=== PATIENT | female | born 1935 | race Asian ===

== ENCOUNTER 2023-12-24 16:33 | Emergency (ER) | payer MEDICARE ==
[~2023-12-24] VITALS: Ht 157.5 cm; Wt 55.0 kg
[~2023-12-24 16:33] MED LIST: ASPI-1450 PO; ATEN-73 PO; CEPH-558 PO; LETR2.5 PO; LEVO50 PO; MECL-302 PO; PANT-31 PO; QUET25TA PO; XALA2.5OS OU
[2023-12-24 17:00] VITALS: TEMP 98.9
[2023-12-24] MEDS ORDERED: GUAIF10 PO (17:04)
[2023-12-24 17:28] VITALS: PULSE 99; RESP 18; O2SAT 100
[2023-12-24] MEDS: IPRATROPIUM BROMIDE 0.5 MG/2.5 ML NEB SOLUTION NEB ONE (17:28)
[2023-12-24] MEDS: ALBUTEROL SULFATE 2.5 MG/0.5 ML NEB SOLUTION NEB ONE (17:28)
[2023-12-24 17:35] LABS: BASOPHILS % (AUTO) 0.8 % (0.0-2.0); EOSINOPHILS % (AUTO) 0.1 % (1.0-6.0); HEMOGLOBIN 11.2 g/dL (12.0-16.0); LYMPHOCYTES % (AUTO) 17.1 % (22.0-44.0); MEAN CORPUSCULAR HEMOGLOBIN 33.4 pg (26.0-34.0); MEAN CORPUSCULAR HGB CONC 31.1 G/dL (31.0-37.0); MEAN CORPUSCULAR VOLUME 107 fL (80-100); MONOCYTES # (AUTO) 0.4 K/uL (0.1-1.0); MONOCYTES % (AUTO) 7.8 % (2.0-9.0); NEUTROPHILS # (AUTO) 4.2 K/uL (1.8-7.7); NEUTROPHILS % (AUTO) 74.2 % (40.0-70.0); PLATELET COUNT (AUTO) 114 K/uL (150-450); RED BLOOD CELL COUNT(AUTO) 3.36 MIL/uL (4.00-5.20); RED CELL DISTRIBUTION WIDTH 21.5 % (11.5-14.5); WHITE BLOOD COUNT (AUTO) 5.7 K/uL (4.5-11.0)
[2023-12-24 17:43] VITALS: PULSE 107; RESP 20; O2SAT 100
[2023-12-24 17:55] LABS: CALCIUM, TOTAL 9.3 mg/dL (8.8-10.5); CREATININE 1.37 mg/dL (0.60-1.30); POTASSIUM 4.5 mmol/L (3.5-5.1)
[2023-12-24 18:07] LABS: TROPONIN I-HIGH SENSITIVITY 63 ng/L (<51)
[2023-12-24] MEDS: LORazepam 2 MG/ML VIAL IVP ONE (18:17)
[2023-12-24 18:20] LABS: ALBUMIN 3.7 g/dL (3.4-5.0); BILIRUBIN,TOTAL 1.1 mg/dL (0.1-1.0); TOTAL PROTEIN, SERUM 7.4 g/dL (6.4-8.2)
[2023-12-24 18:24] LABS: COVID AG,FIA SOURCE NASAL SWAB
[2023-12-24 18:36] LABS: RESPIRATORY SYNCYTIAL VIRS,FIA NEGATIVE (Negative)
[2023-12-24 18:38] LABS: INFLUENZA TYPE A NEGATIVE FOR TYPE A (NEGATIVE); INFLUENZA TYPE B NEGATIVE FOR TYPE B (NEGATIVE)
[2023-12-24 18:47] LABS: SARS-COV2 (COVID) ANTIGEN,FIA Negative (Negative)
[2023-12-24 19:07] LABS: RBC MORPHOLOGY COMMENT ABNORMAL RBC MORPH
[2023-12-24] MEDS: FUROSEMIDE 40 MG/4 ML VIAL IVP ONE (20:13)
[2023-12-24 20:49] VITALS: BP 132/82; PULSE 91; RESP 16
== END 2023-12-24 21:44 | disposition still patient (30) ==
LOC: EMS 16:44
DX: R09.02 Hypoxemia (principal); I48.91 Unspecified atrial fibrillation; R79.89 Other specified abnormal findings of blood chemistry; R06.02 Shortness of breath; E03.9 Hypothyroidism, unspecified; I11.0 Hypertensive heart disease with heart failure; Z98.890 Other specified postprocedural states; Z20.822 Contact with and (suspected) exposure to COVID-19
CPT/HCPCS: 99291; 96374; 71045; 96375; 87426; 80053; 82550; 83880; 87420; 84484; 85025; 87804; 36415; 94640; 93005; J1940; J2060; J7613